=== PATIENT | male | born 1975 | race American Indian/Alaskan Native ===

== ENCOUNTER 2019-08-04 09:38 | Emergency (ER) | payer OTHER ==
[~2019-08-04] VITALS: Ht 175.3 cm; Wt 64.9 kg
== END 2019-08-04 11:13 | disposition home or self-care (01) ==
LOC: ED 09:38
DX: S83.91XA Sprain of unspecified site of right knee, initial encounter (principal); X50.9XXA Other and unspecified overexertion or strenuous movements or postures, initial encounter; F17.200 Nicotine dependence, unspecified, uncomplicated
CPT/HCPCS: 73560; 99283-25; 99406

== ENCOUNTER 2021-01-12 14:26 | Emergency (ER) | payer OTHER ==
[~2021-01-12] VITALS: Ht 175.3 cm; Wt 64.9 kg
== END 2021-01-12 16:00 | disposition home or self-care (01) ==
LOC: ED 14:26
DX: U07.1 COVID-19 (principal); A08.39 Other viral enteritis; F17.200 Nicotine dependence, unspecified, uncomplicated
CPT/HCPCS: 99283

== ENCOUNTER 2023-08-01 05:50 | Day surgery (SDC) | payer OTHER ==
--- NOTE | 2023-07-03 09:17 | NUR ---
PT HERE TO PRE-ADMIT, BUT WHEN TOLD WHEN HIS SURGERY DATE WAS HE STATES "I CAN'T HAVE SURGERY ON THIS DAY. CAN YOU CALL DR EASON OFFICE AND GET IT CHANGED" INSPECTOR [employer] TRYED TO CALL OFFICE BUT NO ANSWER. PT AND INSPECTOR E[employer] FRAMES DECIDED NOT TO FINISH PRE-ADMIT DUE TO WE DID NOT KNOW THE NEXT AVAILABE SURGERY DATE. EXPLAINED TO PT THAT HE NEEDED TO CALL DR PENG OFFICE AND GET IT CHANGED. AND THEN HE COULD GET HIS LABS DONE AT [facility] AND I COULD CALL HIM TO FINISH THE PRE-ADMIT DUE TO HIS JOB AND LACK OF VACTION OR SICK TIME.
--- NOTE | 2023-07-30 12:40 | NUR ---
phone call to pt and no answer at this time. left message for pt to call tag writer.
[~2023-08-01] VITALS: Ht 175.3 cm; Wt 71.4 kg
[2023-08-01 06:06] VITALS: BP 120/69
[2023-08-01] MEDS ORDERED: propofoL 200 MG/20 ML VIAL ONE (06:23)
[2023-08-01] MEDS ORDERED: LIDOCAINE HCL 1% 5 ML SDV INJ ONE (07:00)
[2023-08-01] MEDS ORDERED: IBLOOD GLUCOSE TEST STRIP 1 EA TEST VI PRN (07:00)
[2023-08-01] MEDS ORDERED: LACTATED RINGER'S 1,000 ML IV SCH (07:00)
--- NOTE | 2023-08-01 07:26 | NUR ---
ROUNDS. PT AND EXHIBITED POSITIVE OUTLOOK; STRONG RELATIONAL SUPPORT. PROVIDED HOSPITALITY; PROVIDED SILENT PRAYER.
[2023-08-01] MEDS ORDERED: LACTATED RINGER'S 1,000 ML IV ONE (07:48)
--- NOTE | 2023-08-01 07:56 | NUR ---
08/01/23 0756 Paloma Marti 0752: PT ARRIVES TO PACU WITH ORAL AIRWAY IN PLACE, NON REACTIVE TO ANY STIMULUS.
[2023-08-01 08:30] VITALS: BP 109/79
--- NOTE | 2023-08-01 09:14 | OR ---
[facility] [address] [place], [place] [address] Signed DATE OF OPERATION: 08/01/2023 SURGEON: Liv Collazo MD PREOPERATIVE DIAGNOSIS: Intermittent rectal bleeding associated with bowel movements. POSTOPERATIVE DIAGNOSES: 1. Minimal left-sided diverticulosis. 2. Very minimal internal hemorrhoid tissue. PROCEDURE: Colonoscopy without biopsy. ESTIMATED BLOOD LOSS: None. INDICATIONS: Yaw is a 48-year-old gentleman, asked to see me for his initial colonoscopy. He describes some intermittent blood associated with stools. He said it is painless. He thinks maybe it is from hemorrhoids. He was treated for hepatitis C and that seems to have gone well. He continues to use some marijuana. In that regard, he really needs monitored anesthesia care with propofol infusion. In fact, he used quite a bit of propofol today. The ultrasound of his liver this year was unremarkable. His blood work has been good. He tells me there is no family history of colon cancer or polyps. In the office, I gave him a pamphlet on colonoscopy. We reviewed the nature of the test. There is risk including, but not limited to gas bloating, crampy abdominal pain, bleeding, perforation requiring surgery, and missed diagnosis. We had gone over his instructions for the bowel prep as well. He understands an adult person has to take him home afterwards. He had expressed understanding and wished to proceed. DESCRIPTION OF PROCEDURE: Yaw was taken into our endoscopy suite and placed in the left lateral decubitus position. He was given monitored anesthesia care with propofol infusion per our nurse punch press setter. A digital rectal exam was performed. He really did not have any external hemorrhoids. He had good sphincter tone. There were no masses. The adult colonoscope was introduced and advanced all around into the cecum under direct visualization of the camera without difficulty. He did use some extra propofol in order to get to the cecum itself. His prep was quite good. He had a few areas of liquid stool, most of which could be suctioned out. We could easily see the appendiceal orifice and the ileocecal Electronically Signed By: LIV COLLAZO MD 08/01/23 0914 PATIENT NAME: YAW VENCES OPERATIVE REPORT DATE OF : 75 REPORT #: [id number] PHYSICIAN: LIV COLLAZO MD PCP: [facility] REPORT IS CONFIDENTIAL AND NOT TO BE RELEASED WITHOUT AUTHORIZATION [facility] [address] [place], [place] [address] Signed valve. The scope was then slowly withdrawn. We took pictures throughout for photodocumentation. He does have some diverticula in the left and sigmoid colon. They are relatively small in size, few in number and scattered about. Once in the rectum, the scope was retroflexed and he has very minimal if any internal hemorrhoid columns. After this, the gas was suctioned out and the colonoscope removed. Yaw tolerated the procedure quite well. RECOMMENDATIONS: Yaw can follow up in 10 years for repeat colonoscopy. Liv Collazo MD ALB/MODL /[id number] cc: MD Liv Turner MD Copies: NIXON HANNA MD, ANDREW L MD ~ Electronically Signed By: LIV COLLAZO MD 08/01/23 0914 PATIENT NAME: YAW VENCES OPERATIVE REPORT DATE OF : 75 REPORT #: [id number] PHYSICIAN: LIV COLLAZO MD PCP: [facility] REPORT IS CONFIDENTIAL AND NOT TO BE RELEASED WITHOUT AUTHORIZATION
== END 2023-08-01 08:40 | disposition home or self-care (01) ==
LOC: DS 05:50
PROVIDERS: ATTEND Colon & Rectal Surgery
PROC: 0DJD8ZZ Inspection of Lower Intestinal Tract, Via Natural or Artificial Opening Endoscopic (ICD-10-PCS; principal; 2023-08-01 07:30)
DX: K57.31 Diverticulosis of large intestine without perforation or abscess with bleeding (principal); K64.8 Other hemorrhoids; F12.10 Cannabis abuse, uncomplicated
CPT/HCPCS: 00811; J2704; J7121